=== PATIENT | female | born 1980 | race African-American/Black ===

== ENCOUNTER 2018-08-20 11:08 | Emergency (ER) | payer OTHER ==
[~2018-08-20] VITALS: Ht 152.4 cm; Wt 81.6 kg
--- NOTE | 2018-08-20 11:22 | NUR ---
SWALLOWED RUBBER BAND COUPLE OF WEEKS AGO AND PATIENT STATES THAT SHE FELT IT STUCK IN HER THROAT AND PAIN IS GETTING WORSE. STATES SHE HAS AN ENT APPT SATURDAY AND REQUESTS CT SCAN. READY FOR EVAL.
--- NOTE | 2018-08-20 11:30 | NUR ---
DR LIND AT BEDSIDE FOR EVAL.
--- NOTE | 2018-08-20 11:54 | NUR ---
Patient discharged to home in stable condition. Written and verbal after care instructions given. Patient verbalizes understanding of instruction.
[2018-08-20 11:55] VITALS: BP 124/76
== END 2018-08-20 11:55 | disposition home or self-care (01) ==
LOC: ER 11:12
DX: R09.89 Other specified symptoms and signs involving the circulatory and respiratory systems (principal); Z98.890 Other specified postprocedural states; Z88.0 Allergy status to penicillin
CPT/HCPCS: Z7502

== ENCOUNTER 2023-05-22 03:39 | Emergency (ER) | payer OTHER ==
[~2023-05-22] VITALS: Ht 152.4 cm; Wt 93.4 kg
[2023-05-22] MEDS ORDERED: LORA-258 PO (04:58)
[2023-05-22 05:16] VITALS: BP 128/81; TEMP 98.1; O2SAT 99
== END 2023-05-22 05:17 | disposition home or self-care (01) ==
LOC: ER 03:39
DX: F44.9 Dissociative and conversion disorder, unspecified (principal); Z88.0 Allergy status to penicillin